=== PATIENT | male | born 1960 | race Two or more races ===

== ENCOUNTER 2016-08-14 03:24 | Emergency (ER) | payer MEDICAID ==
[~2016-08-14] VITALS: Ht 172.7 cm; Wt 81.6 kg
[2016-08-14] MEDS ORDERED: IV NS 0.9% 500 ML BAG IV ONE (04:00)
[2016-08-14 04:20] LABS: KETONES,URINE NEGATIVE (NEGATIVE); LEUKOCYTE ESTERASE ,URINE 1+ (NEGATIVE)
[2016-08-14 04:24] LABS: ADD UA MICROSCOPIC YES
[2016-08-14 04:27] LABS: RBC,URINE 21-50 /HPF (0-2)
[2016-08-14 04:28] LABS: ADD URINE CULTURE YES
[2016-08-14] MEDS ORDERED: IV NS 0.9% 500 ML IV ONE (04:52)
[2016-08-14] MEDS ORDERED: CEFTRIAXONE 1GM BAG (ER ONLY) 50 ML IV ONE (04:52)
[2016-08-14] MEDS ORDERED: IV SET PRIMARY 1 EA INFUS.SET MC ONE (04:52)
[2016-08-14] MEDS ORDERED: CEFTRIAXONE 1GM BAG (ER ONLY) 1 GM/50 ML PIGGYBACK IV ONE (05:00)
[2016-08-14 05:04] LABS: HEMATOCRIT 40 % (39-51); HEMOGLOBIN 13.2 g/dL (13.5-17.5); MEAN CORPUSCULAR HEMOGLOBIN 34 PG (26.0-33.0); MEAN CORPUSCULAR HGB CONC 33 g/dl (31.0-36.0); MEAN CORPUSCULAR VOLUME 102 fL (80-96); PLATELET COUNT (AUTO) 201 /CMM (150-450); RED BLOOD CELL COUNT(AUTO) 3.88 MIL/uL (4.5-6.0); WHITE BLOOD COUNT (AUTO) 3.3 K/uL (4.3-11.0)
[2016-08-14 05:09] LABS: CALCIUM, SERUM 8.6 mg/dL (8.5-10.1); CREATININE 1.7 mg/dL (0.6-1.3); POTASSIUM 3.9 mmol/L (3.5-5.1)
[2016-08-14 05:11] LABS: LYMPHOCYTES % (MANUAL) 37 % (16-48); PLATELET ESTIMATE ADEQUATE
[2016-08-14 05:12] LABS: ANISOCYTOSIS 1+
[2016-08-14 05:14] LABS: ALBUMIN 3.5 g/dL (3.4-5.0); BILIRUBIN,DIRECT 0.1 mg/dL (0.0-0.2); BILIRUBIN,TOTAL 0.3 mg/dL (0.2-1.0); INDIRECT BILIRUBIN 0.2 mg/dL (0.0-1.1); TOTAL PROTEIN, SERUM 7.3 g/dL (6.4-8.2)
[2016-08-14 06:55] VITALS: BP 138/87
== END 2016-08-14 06:56 | disposition home or self-care (01) ==
LOC: ER 03:33
DX: N39.0 Urinary tract infection, site not specified (principal); N20.0 Calculus of kidney; N28.9 Disorder of kidney and ureter, unspecified
CPT/HCPCS: 36415; 80048-TC; 80076-TC; 81000-TC; 85025-TC; 87086-TC; A4606; J0696; J7040; Z7610